=== PATIENT | female | born 1950 | race African-American/Black ===

== ENCOUNTER 2019-06-21 09:06 | Outpatient (CLI) | payer BC ==
--- NOTE | 2019-06-21 09:45 | MMO ---
Bilateral MAMMO Bilat Screen [facility]. CLINICAL HISTORY: Patient is 68 years old and is seen for screening. The patient has no family history of breast cancer. The patient has no personal history of cancer. VIEWS: The views performed were: bilateral craniocaudal with tomosynthesis and bilateral mediolateral oblique with tomosynthesis. FILMS COMPARED: The present examination has been compared to prior imaging studies performed at [facility] on 09/03/2014, 09/09/2015, 09/16/2016 and 09/20/2017. MAMMOGRAM FINDINGS: There are scattered fibroglandular densities. There are stable benign appearing calcifications seen in both breasts. Nodularity is stable. There are no suspicious masses, suspicious calcifications, or new areas of architectural distortion. IMPRESSION: THERE IS NO MAMMOGRAPHIC EVIDENCE OF MALIGNANCY. A ROUTINE FOLLOW-UP MAMMOGRAM IN 1 YEAR IS RECOMMENDED. THE RESULTS OF THIS EXAM WERE SENT TO THE PATIENT. ACR BI-RADS Category 2 - Benign finding MAMMOGRAPHY NOTE: 1. A negative mammogram report should not delay a biopsy if a dominant of clinically suspicious mass is present. 2. Approximately 10% to 15% of breast cancers are not detected by mammography. 3. Adenosis and dense breasts may obscure an underlying neoplasm. Reported by: ROSA MARIA HERNÁNDEZ MD Electonically Signed: [id number]
== END 2019-06-21 09:07 | disposition home or self-care (01) ==
LOC: BICMAMMO 09:06
PROVIDERS: ATTEND Family Medicine
DX: Z12.31 Encounter for screening mammogram for malignant neoplasm of breast (principal)
CPT/HCPCS: 77063; 77067

== ENCOUNTER 2020-11-25 11:33 | Outpatient (CLI) | payer MEDICARE ==
--- NOTE | 2020-11-25 12:53 | RAD ---
KUB AND UPRIGHT: HISTORY: Abdominal pain and constipation. FINDINGS: The bowel gas pattern is nonobstructed. No renal calculi. No free air. Arthritic changes of the sp ine and hips are present. IMPRESSION: No acute finding. POS: BALTAZAR
== END 2020-11-25 11:34 | disposition home or self-care (01) ==
LOC: BICRAD 11:33
PROVIDERS: ATTEND Physician Assistant Medical
DX: K59.00 Constipation, unspecified (principal); R14.0 Abdominal distension (gaseous); K52.9 Noninfective gastroenteritis and colitis, unspecified
CPT/HCPCS: 74019

== ENCOUNTER 2021-10-02 09:44 | Outpatient (CLI) | payer MEDICARE ==
[2021-10-02 11:26] LABS: #Eosinphils 0.2 10x3/uL (0.0-0.5); #Monocytes 0.3 10x3/uL (0.0-1.1); #Neutrophils 2.7 10x3/uL (1.5-8.4); %Basophils 0.8 % (0.0-2.0); %Eosinophils 2.9 % (0.0-6.0); %Lymphocytes 37.1 % (18.0-47.0); %Monocytes 6.4 % (0.0-10.0); %Neutrophils 52.6 % (40.0-75.0); Hemoglobin 11.9 g/dL (12.0-15.5); Mean Corpuscular HGB CONC 32.3 g/dL (32.0-36.0); Mean Corpuscular Hemoglobin 27.9 pg (27.0-33.0); Mean Corpuscular Volume 86.4 fl (81.6-98.3); Mean Platelet Volume 10.2 fl (7.4-10.4); Platelet Count 240 10x3/uL (150-450); RBC Distribution Width 16.2 % (11.5-14.5); Red Blood Cell (RBC) Count 4.26 10x6/uL (3.90-5.03); White Blood Cell (WBC) Count 5.2 10x3/uL (3.5-10.5)
[2021-10-02 11:44] LABS: INR-International Normal Ratio 0.9; Prothrombin Time 10.5 sec (9.5-12.1)
[2021-10-02 11:52] LABS: Anion Gap 11 mmol/L (10-20); BUN (Urea Nitrogen) 15 mg/dL (9.8-20.1); Calc. Creatinine Clearance 0 mL/min (70-130); Calcium 8.8 mg/dL (7.8-10.44); Carbon Dioxide 28 mmol/L (23-31); Chloride 107 mmol/L (98-107); Glucose 115 mg/dL (80-115); Potassium 3.8 mmol/L (3.5-5.1); Sodium 142 mmol/L (136-145)
[2021-10-02 22:08] LABS: SARS-CoV-2 PCR by NAA Not Detected (NotDetected)
== END 2021-10-02 09:45 | disposition home or self-care (01) ==
LOC: LABBT 09:44
PROVIDERS: ATTEND Orthopaedic Surgery
DX: Z01.818 Encounter for other preprocedural examination (principal); M17.11 Unilateral primary osteoarthritis, right knee; Z20.822 Contact with and (suspected) exposure to COVID-19
CPT/HCPCS: 80048; 85025; 85610; 87081; 93005; U0003; U0005; 93010

== ENCOUNTER 2021-10-06 05:34 | Observation (INO) | payer MEDICARE ==
[2021-10-06] MEDS ORDERED: Fentanyl 100 MCG/2 ML VIAL ONE ×2 (06:41→07:33)
[2021-10-06] MEDS ORDERED: Midazolam HCl 2 mg/2 ml Vial ONE (06:41)
[2021-10-06] MEDS ORDERED: Levofloxacin 500 mg/D5W 100 ml Premix Bag ONE (06:56)
[2021-10-06] MEDS ORDERED: Vancomycin 1 GM/200 ML BAG ONE (06:56)
[2021-10-06] MEDS ORDERED: Sodium Chloride 0.9% 100 ML ONE (06:56)
[2021-10-06] MEDS ORDERED: Tranexamic Acid 1,000 MG/10 ML VIAL ONE (06:56)
[2021-10-06] MEDS ORDERED: Ondansetron PF 4 MG/2 ML Vial IVP PRN ×2 (06:59→07:30)
[2021-10-06] MEDS ORDERED: HYDROcodone/Acetaminophen 10/325 mg Tablet PO PRN ×3 (06:59→07:30)
[2021-10-06] MEDS ORDERED: traMADol HCl 50 MG TAB PO PRN ×3 (06:59→07:30)
[2021-10-06] MEDS ORDERED: Acetaminophen 325 MG TAB PO PRN (06:59)
[2021-10-06] MEDS ORDERED: Promethazine HCl 25 MG/ML VIAL IM PRN ×3 (06:59→09:29)
[2021-10-06] MEDS ORDERED: Zolpidem Tartrate 5 MG TAB PO PRN ×2 (06:59→07:30)
[2021-10-06] MEDS ORDERED: diphenhydrAMINE 25 MG CAP PO PRN (06:59)
[2021-10-06] MEDS ORDERED: DOXYCYCLINE HYCLATE 100 MG PO PRN (07:01)
[2021-10-06] MEDS ORDERED: Ondansetron PF 4 MG/2 ML Vial ONE (07:25)
[2021-10-06] MEDS ORDERED: Dexamethasone 20 MG/5 ML VIAL ONE (07:25)
[2021-10-06] MEDS ORDERED: Labetalol HCl 100 MG/20 ML VIAL ONE (07:25)
[2021-10-06] MEDS ORDERED: PROPOFOL 200 MG/20 ML VIAL ONE (07:25)
[2021-10-06] MEDS ORDERED: Lidocaine 1% PF 5 ML VIAL ONE (07:25)
[2021-10-06] MEDS ORDERED: Bupivacaine HCl 0.5%/Epinephrine 1:200,000/PF 30 ml Vial ONE (07:25)
[2021-10-06] MEDS ORDERED: Fentanyl 100 MCG/2 ML VIAL SLOW IVP PRN (07:26)
[2021-10-06] MEDS ORDERED: Ropivacaine 0.2% 550 ML 550 ML NERVE BLCK SCH (07:30)
[2021-10-06] MEDS ORDERED: Doxycycline 100 MG CAP PO PRN (08:00)
[2021-10-06] MEDS ORDERED: Bupivacaine PF 0.5% 30 ML VIAL ONE (08:29)
[2021-10-06] MEDS ORDERED: Ferrous Gluconate 324 MG TAB PO SCH (09:00)
[2021-10-06] MEDS ORDERED: FOLIC ACID PO SCH (09:00)
[2021-10-06] MEDS ORDERED: PNV95 PO SCH (09:00)
[2021-10-06] MEDS ORDERED: IRON FUM PO SCH (09:00)
[2021-10-06] MEDS ORDERED: Senokot S 8.6-50 MG TAB PO SCH (09:00)
[2021-10-06] MEDS ORDERED: Aspirin 325 MG TAB PO SCH (09:00)
[2021-10-06] MEDS ORDERED: Ondansetron HCl/PF 4 MG/2 ML Vial IVP PRN (09:29)
[2021-10-06] MEDS ORDERED: Promethazine HCl 25 MG/ML VIAL IVPB PRN (09:29)
[2021-10-06 11:13] VITALS: BMI 28.8
[2021-10-06] MEDS: Sodium Chloride 0.9% 1,000 ML IV SCH ×2 (12:11→17:57)
[2021-10-06] MEDS: Folic Acid 1 MG TAB PO SCH (13:51)
[2021-10-06] MEDS: Ferrous Gluconate 324 MG TAB PO SCH ×2 (13:51→22:11)
[2021-10-06] MEDS: Aspirin 81 mg Enteric Coated Tablet PO SCH ×2 (13:51→22:11)
[2021-10-06] MEDS: Niacin 500 MG TAB PO SCH (13:52)
[2021-10-06] MEDS: Polyethylene Glycol 3350 17 GM Packet PO SCH (13:53)
[2021-10-06] MEDS: Prenatal Vitamin 1 TAB PO SCH (13:54)
[2021-10-06] MEDS: CEFAZOLIN 2 GM in Premix Bag 1 BAG IVPB SCH ×2 (14:25→17:21)
[2021-10-06] MEDS: ceFAZolin Sodium/D5W 2 GM in Premix Bag 1 BAG IVPB SCH ×2 (15:11→23:34)
[2021-10-06] MEDS ORDERED: Vancomycin 1.5 GRAM/300 ML BAG 1.5 GM in Premix Bag 1 BAG IVPB SCH (18:00)
[2021-10-06] MEDS ORDERED: Amlodipine 10 MG TAB PO SCH (21:00)
[2021-10-06] MEDS ORDERED: Mesalamine DR 400 mg Capsule PO SCH (21:00)
[2021-10-06] MEDS ORDERED: MESALAMINE 1.2 GM PO SCH (21:00)
[2021-10-06] MEDS ORDERED: Ferrous Sulfate 325 MG TAB PO SCH (21:00)
[2021-10-06] MEDS ORDERED: Non-Formulary Item 1 EACH (Iron [Iron] 18 MG Tablet) PO SCH (21:00)
[2021-10-06] MEDS ORDERED: Atorvastatin Calcium 10 MG TAB PO SCH (21:00)
[2021-10-07] MEDS: HYDROcodone/Acetaminophen 10/325 mg Tablet PO PRN ×3 (01:49→13:45)
[2021-10-07] MEDS: Sodium Chloride 0.9% 1,000 ML IV SCH (05:16)
[2021-10-07 05:54] LABS: Hemoglobin 11.3 g/dL (12.0-16.0); Mean Corpuscular HGB CONC 33.2 g/dL (32.0-36.0); Mean Corpuscular Hemoglobin 29.4 pg (27.0-31.0); Mean Corpuscular Volume 88.6 fL (78.0-98.0); Mean Platelet Volume 7.4 fL (7.4-10.4); Platelet Count 223 thou/uL (130-400); RBC Distribution Width 14.5 % (11.5-14.5); Red Blood Cell (RBC) Count 3.84 mill/uL (4.20-5.40)
[2021-10-07] MEDS: ceFAZolin Sodium/D5W 2 GM in Premix Bag 1 BAG IVPB SCH (06:30)
[2021-10-07] MEDS: Polyethylene Glycol 3350 17 GM Packet PO SCH (08:01)
[2021-10-07] MEDS: Ferrous Gluconate 324 MG TAB PO SCH (08:02)
[2021-10-07] MEDS: Folic Acid 1 MG TAB PO SCH (08:02)
[2021-10-07] MEDS: Niacin 500 MG TAB PO SCH (08:03)
[2021-10-07] MEDS: Aspirin 81 mg Enteric Coated Tablet PO SCH (08:03)
[2021-10-07] MEDS: Prenatal Vitamin 1 TAB PO SCH (08:03)
[2021-10-07] MEDS ORDERED: Multivitamin W/ Minerals 1 TAB PO SCH (09:00)
[2021-10-07] MEDS ORDERED: Senokot S 8.6-50 MG TAB PO SCH (09:00)
[2021-10-07 16:12] VITALS: BP 174/87; TEMP 98.6
== END 2021-10-07 17:49 | disposition home health service (06) ==
LOC: SDC 05:34 → INTOOBSV 10:49 → SJJU 10:49
PROVIDERS: ADMIT Orthopaedic Surgery; ATTEND Orthopaedic Surgery
PROC: 0SRC0J9 Replacement of Right Knee Joint with Synthetic Substitute, Cemented, Open Approach (ICD-10-PCS; principal; 2021-10-06)
PROC: 8E0YXBZ Computer Assisted Procedure of Lower Extremity (ICD-10-PCS; 2021-10-06)
PROC: 3E0T3BZ Introduction of Anesthetic Agent into Peripheral Nerves and Plexi, Percutaneous Approach (ICD-10-PCS; 2021-10-06)
DX: M17.11 Unilateral primary osteoarthritis, right knee (principal); I10 Essential (primary) hypertension; E11.9 Type 2 diabetes mellitus without complications; E78.5 Hyperlipidemia, unspecified; Q60.2 Renal agenesis, unspecified; Z79.82 Long term (current) use of aspirin; Z79.899 Other long term (current) drug therapy; Z88.0 Allergy status to penicillin; Z88.2 Allergy status to sulfonamides; Z88.5 Allergy status to narcotic agent; Z96.652 Presence of left artificial knee joint
CPT/HCPCS: 20985; 27447; 64448; 73560; 85027; 96365; 96375; 96376 ×2; 97110; 97116; 97139 ×2; 97530 ×2; A4306; C1713; C1776; G0378 ×2; 36415; J1100; J1956; J2250; J2405; J2704; J2795; J3010; J3370; J3490; J7050; S0020

== ENCOUNTER 2021-12-21 12:57 | Emergency (ER) | payer MEDICARE | END 2021-12-21 15:30 | disposition home or self-care (01) | LOC: ERS 12:57 | DX: S63.634A Sprain of interphalangeal joint of right ring finger, initial encounter (principal); E11.9 Type 2 diabetes mellitus without complications; I10 Essential (primary) hypertension; X50.9XXA Other and unspecified overexertion or strenuous movements or postures, initial encounter ==

== ENCOUNTER 2022-10-13 15:14 | Emergency (ER) | payer MEDICARE, OTHER ==
[2022-10-13 15:41] LABS: #Eosinphils 0.1 thou/uL (0.0-0.7); #Lymphocytes 1.7 thou/uL (1.20-3.40); #Monocytes 0.6 thou/uL (0.11-0.59); #Neutrophils 4.4 thou/uL (1.40-6.50); %Basophils 0.6 % (0.0-1.0); %Eosinophils 1.1 % (0.0-10.0); %Lymphocytes 24.8 % (21.0-51.0); %Monocytes 9.1 % (0.0-10.0); %Neutrophils 64.5 % (42.0-75.0); Hemoglobin 11.3 g/dL (12.0-16.0); Mean Corpuscular HGB CONC 32.7 g/dL (32.0-36.0); Mean Corpuscular Hemoglobin 29.2 pg (27.0-31.0); Mean Corpuscular Volume 89.3 fl (78.0-98.0); Mean Platelet Volume 7.8 fL (7.4-10.4); Platelet Count 212 10x3/uL (130-400); RBC Distribution Width 14.8 % (11.5-14.5); Red Blood Cell (RBC) Count 3.87 mill/uL (4.20-5.40); White Blood Cell (WBC) Count 6.8 10x3/uL (4.8-10.8)
[2022-10-13 16:00] LABS: ALT (SGPT) 20 U/L (8-55); AST (SGOT) 16 U/L (5-34); Albumin 3.9 g/dL (3.4-4.8); Alkaline Phosphatase 82 U/L (40-110); Anion Gap 13 mmol/L (10-20); BUN (Urea Nitrogen) 21 mg/dL (9.8-20.1); Bilirubin, Total 0.3 mg/dL (0.2-1.2); Calc. Creatinine Clearance 0 mL/min (70-130); Calcium 9.4 mg/dL (7.8-10.44); Carbon Dioxide 25 mmol/L (23-31); Chloride 108 mmol/L (98-107); Estimated GFR 61; Globulin 3.3 g/dL (2.4-3.5); Glucose 106 mg/dL (80-115); Protein, Total 7.2 g/dL (5.8-8.1); Sodium 142 mmol/L (136-145)
[2022-10-13] MEDS ORDERED: Dexameth. Sod Phosp. 10 MG/ML (CHEMO USE ONLY) ONE (18:17)
[2022-10-13] MEDS ORDERED: Ketorolac Tromethamine 30 MG/ML VIAL ONE (18:17)
== END 2022-10-13 18:52 | disposition home or self-care (01) ==
LOC: ERS 15:14
DX: M54.42 Lumbago with sciatica, left side (principal); M79.605 Pain in left leg
CPT/HCPCS: 36415; 80053; 85025; 96372; J1100; J1885

== ENCOUNTER 2023-04-28 08:39 | Outpatient (CLI) | payer OTHER | END 2023-04-28 08:40 | disposition home or self-care (01) | LOC: BICMRI 08:39 | PROVIDERS: ATTEND Family Medicine | DX: M47.26 Other spondylosis with radiculopathy, lumbar region (principal); M47.817 Spondylosis without myelopathy or radiculopathy, lumbosacral region; M47.815 Spondylosis without myelopathy or radiculopathy, thoracolumbar region; K80.20 Calculus of gallbladder without cholecystitis without obstruction | CPT/HCPCS: 72148 ==

== ENCOUNTER 2023-07-14 08:35 | Outpatient (CLI) | payer OTHER ==
[2023-07-14] MEDS ORDERED: Iopamidol-370 76% 500 ML MDV (1 ML CHARGE) ONE (09:13)
== END 2023-07-14 08:36 | disposition home or self-care (01) ==
LOC: BICCT 08:35
PROVIDERS: ATTEND Physician Assistant Medical
DX: R10.30 Lower abdominal pain, unspecified (principal); N28.89 Other specified disorders of kidney and ureter
CPT/HCPCS: 74177

== ENCOUNTER 2023-07-28 07:59 | Outpatient (CLI) | payer OTHER ==
[2023-07-28] MEDS ORDERED: Iopamidol 370 76% 100 ML VIAL ONE (15:50)
== END 2023-07-28 08:00 | disposition home or self-care (01) ==
LOC: BICCT 07:59
PROVIDERS: ATTEND Physician Assistant Medical
DX: R93.421 Abnormal radiologic findings on diagnostic imaging of right kidney (principal)
CPT/HCPCS: 74178; Q9967

== ENCOUNTER 2023-08-17 08:39 | Outpatient (CLI) | payer OTHER | END 2023-08-17 08:40 | disposition home or self-care (01) | LOC: BICCT 08:39 | PROVIDERS: ATTEND Urology | DX: N28.1 Cyst of kidney, acquired (principal); N28.89 Other specified disorders of kidney and ureter; I70.0 Atherosclerosis of aorta | CPT/HCPCS: 74174; 82565 ==

== ENCOUNTER 2023-08-25 13:02 | Outpatient (CLI) | payer OTHER | END 2023-08-25 13:03 | disposition home or self-care (01) | LOC: NM 13:02 | PROVIDERS: ATTEND Urology | DX: N28.1 Cyst of kidney, acquired (principal) | CPT/HCPCS: 78707; A9562 ==

== ENCOUNTER 2023-11-18 09:27 | Outpatient (CLI) | payer OTHER ==
[2023-11-18 11:09] LABS: Bilirubin Neg (Negative); Blood, Urine 250 (Negative); Clarity Clear (Clear); Glucose, Urine (Dipstick) Normal (Negative); Ketone, Urine Negative (Negative); Leukocyte Negative (Negative); Nitrite Negative (Negative); Protein, Urine (Dipstick) 100 mg/dl (Neg-Trace); Urobilinogen Normal mg/dL (Less than 2)
[2023-11-18 11:10] LABS: Hematocrit 34.2 % (34.9-44.5); Hemoglobin 10.9 g/dL (12.0-15.5); Mean Corpuscular HGB CONC 31.9 g/dL (32.0-36.0); Mean Corpuscular Hemoglobin 27.2 pg (27.0-33.0); Mean Corpuscular Volume 85.3 fl (81.6-98.3); Mean Platelet Volume 10.2 fl (7.4-10.4); Platelet Count 266 10x3/uL (150-450); Red Blood Cell (RBC) Count 4.01 10x6/uL (3.90-5.03); White Blood Cell (WBC) Count 4.8 10x3/uL (3.5-10.5)
[2023-11-18 11:16] LABS: Bacteria/HPF None Seen HPF (None Seen); Squamous Epithelial 0-3 HPF (0-3); WBC/HPF None Seen HPF (0-3)
[2023-11-18 11:34] LABS: INR-International Normal Ratio 0.9; Prothrombin Time 10.1 sec (9.5-12.1)
[2023-11-18 12:09] LABS: Anion Gap 17 mmol/L (10-20); BUN (Urea Nitrogen) 21 mg/dL (9.8-20.1); Calc. Creatinine Clearance 0 mL/min (70-130); Calcium 8.9 mg/dL (7.8-10.44); Carbon Dioxide 23 mmol/L (23-31); Chloride 106 mmol/L (98-107); Estimated GFR 44; Glucose 102 mg/dL (83-110); Potassium 4.1 mmol/L (3.5-5.1); Sodium 142 mmol/L (136-145)
== END 2023-11-18 09:28 | disposition home or self-care (01) ==
LOC: LABBT 09:27
PROVIDERS: ATTEND Urology
DX: Z01.818 Encounter for other preprocedural examination (principal); N28.1 Cyst of kidney, acquired; E11.9 Type 2 diabetes mellitus without complications; I10 Essential (primary) hypertension
CPT/HCPCS: 71046; 80048; 81001; 85027; 85610; 85730; 87086; 93005; 93010

== ENCOUNTER 2023-11-18 10:00 | Inpatient (IN) | payer OTHER ==
[2023-11-26] MEDS ORDERED: PROPOFOL 20 ML ONE (06:49)
[2023-11-26] MEDS ORDERED: fentaNYL PF 100 MCG/2 ML SYRINGE ONE ×2 (06:49→07:49)
[2023-11-26] MEDS ORDERED: Lidocaine 1% PF 5 ML VIAL ONE (06:50)
[2023-11-26] MEDS ORDERED: Rocuronium Bromide 10 MG/ML (10ML VIAL) ONE (06:50)
[2023-11-26] MEDS ORDERED: Sodium Chloride 0.9% 100 ML ONE (07:00)
[2023-11-26] MEDS ORDERED: CEFAZOLIN 2 GM VIAL ONE (07:00)
[2023-11-26] MEDS ORDERED: Vasopressin 20 UNITS/ML VIAL ONE (07:33)
[2023-11-26] MEDS ORDERED: Bupivacaine 0.25% HCL 30 ML VIAL ONE (07:34)
[2023-11-26] MEDS ORDERED: Phenylephrine 40 MG/NS 250 ML 250 ML ONE (07:34)
[2023-11-26] MEDS ORDERED: Ropivacaine 0.2% HCl/PF 20 ML ONE (07:56)
[2023-11-26] MEDS ORDERED: HYDROcodone/Acetaminophen 5/325 mg Tablet PO PRN ×2 (08:00)
[2023-11-26] MEDS ORDERED: Moisturizing Cream (Eucerin) 113 GM JAR TOP PRN (08:00)
[2023-11-26] MEDS ORDERED: diphenhydrAMINE 50 MG/ML VIAL IM PRN (08:00)
[2023-11-26] MEDS ORDERED: Promethazine HCl 25 MG/ML VIAL IM PRN ×2 (08:00→10:34)
[2023-11-26] MEDS ORDERED: diphenhydrAMINE 25 MG CAP PO PRN (08:00)
[2023-11-26] MEDS ORDERED: Zolpidem Tartrate 5 MG TAB PO PRN (08:00)
[2023-11-26] MEDS ORDERED: Promethazine HCl 25 MG SUPP PR PRN (08:00)
[2023-11-26] MEDS ORDERED: traMADol HCl 50 MG TAB PO PRN ×2 (08:00)
[2023-11-26] MEDS ORDERED: Naloxone HCl 0.4 mg/ml Vial IVP PRN (08:00)
[2023-11-26] MEDS ORDERED: Naloxone HCl 0.4 mg/ml Vial IV PRN (08:00)
[2023-11-26] MEDS ORDERED: ePHEDrine Sulfate 50 MG/10 ML VIAL ONE (08:09)
[2023-11-26] MEDS ORDERED: Albumin 5% 500 ML ONE (09:41)
[2023-11-26] MEDS ORDERED: Dexamethasone 20 MG/5 ML VIAL ONE (10:26)
[2023-11-26] MEDS ORDERED: Ondansetron PF 4 MG/2 ML Vial ONE (10:26)
[2023-11-26] MEDS ORDERED: Lidocaine 1.5% w/Epi 1:200K 30 ML VIAL (Epid Use) ONE (10:26)
[2023-11-26] MEDS ORDERED: HYDROmorphone 2 MG/ML VIAL SLOW IVP PRN (10:34)
[2023-11-26] MEDS ORDERED: Ondansetron HCl/PF 4 MG/2 ML Vial IVP PRN (10:34)
[2023-11-26] MEDS ORDERED: Glycopyrrolate 0.2 MG/ML 5 ML SYRINGE ONE (10:44)
[2023-11-26] MEDS ORDERED: NEOSTIGMINE 3 MG/3 ML SYR 3 MG/3 ML SYRINGE ONE (10:44)
[2023-11-26] MEDS ORDERED: Dextrose 5% in Water 1,000 ML IV PRN (11:19)
[2023-11-26] MEDS ORDERED: Mag-Al 1200 mg/1200 mg/30 ML UDCUP PO PRN (11:19)
[2023-11-26] MEDS ORDERED: Glucagon 1 MG/ML KIT IM PRN (11:19)
[2023-11-26] MEDS ORDERED: Bisacodyl 10 MG SUPP PR PRN (11:19)
[2023-11-26] MEDS ORDERED: Dextrose 50% Abboject 50 ML SYRINGE SLOW IVP PRN (11:19)
[2023-11-26] MEDS ORDERED: Insulin Regular 300 UNITS/3 ML VIAL SC PRN (11:19)
[2023-11-26] MEDS: Sodium Chloride 0.9% 1,000 ML IV SCH (11:30)
[2023-11-26 11:46] LABS: Hematocrit 29.1 % (36.0-47.0); Hemoglobin 9.3 g/dL (12.0-16.0); Mean Corpuscular Hemoglobin 27.4 pg (27.0-31.0); Mean Corpuscular Volume 85.8 fl (78.0-98.0); Mean Platelet Volume 10.2 fL (7.4-10.4); Platelet Count 243 10x3/uL (130-400); RBC Distribution Width 16.4 % (11.5-14.5); Red Blood Cell (RBC) Count 3.39 mill/uL (4.20-5.40); White Blood Cell (WBC) Count 14.8 10x3/uL (4.8-10.8)
[2023-11-26 12:11] LABS: Anion Gap 13 mmol/L (10-20); BUN (Urea Nitrogen) 23 mg/dL (9.8-20.1); Calc. Creatinine Clearance 55 mL/min (70-130); Calcium 8.3 mg/dL (7.8-10.44); Carbon Dioxide 20 mmol/L (23-31); Chloride 112 mmol/L (98-107); Estimated GFR 56; Glucose 130 mg/dL (83-110); Potassium 3.6 mmol/L (3.5-5.1); Sodium 141 mmol/L (136-145)
[2023-11-26] MEDS ORDERED: fentaNYL 50 mcg/mL 1 mL Vial ONE ×2 (12:31→12:37)
[2023-11-26 13:56] VITALS: BMI 29.2
[2023-11-26] MEDS ORDERED: Bupivacaine 0.25% 10 ML VIAL EPIDURAL PRN (14:00)
[2023-11-26] MEDS ORDERED: CEFAZOLIN 1 GM in Sodium Chloride 0.9% 100 ML IVPB SCH (14:00)
[2023-11-26] MEDS: CEFAZOLIN 1 GM in Sodium Chloride 0.9% 100 ML IVPB SCH (16:02)
[2023-11-26] MEDS: Labetalol HCl 100 MG/20 ML VIAL SLOW IVP PRN (17:54)
[2023-11-26] MEDS: Amlodipine 10 MG TAB PO SCH (19:37)
[2023-11-26] MEDS: Atorvastatin Calcium 20 MG TAB PO SCH (19:37)
[2023-11-26] MEDS: Ferrous Sulfate 325 MG TAB PO SCH (19:37)
[2023-11-26] MEDS: Mesalamine DR 400 mg Capsule PO SCH (19:38)
[2023-11-26] MEDS: Senokot S 8.6-50 MG TAB PO SCH (19:38)
[2023-11-26] MEDS: Ramipril 5 MG CAP PO SCH (19:38)
[2023-11-26] MEDS ORDERED: MESALAMINE 1.2 GM PO SCH (21:00)
[2023-11-26] MEDS ORDERED: Non-Formulary Item 1 EACH (Ferrous Sulfate [Ferosul] 325 MG Tablet) PO SCH (21:00)
[2023-11-26] MEDS ORDERED: Non-Formulary Item 1 EACH (Ferrous Gluconate [Ferrous Gluconate] 324 MG Tablet) PO SCH (21:00)
[2023-11-26] MEDS ORDERED: Non-Formulary Item 1 EACH (Ramipril [Ramipril] 10 MG Capsule) PO SCH (21:00)
[2023-11-26] MEDS ORDERED: PITAVASTATIN CALCIUM 4 MG PO SCH (21:00)
[2023-11-26] MEDS ORDERED: Ferrous Gluconate 324 MG TAB PO SCH (21:00)
[2023-11-26] MEDS: Ondansetron PF 4 MG/2 ML Vial IVP PRN (23:25)
[2023-11-27] MEDS: FENTANYL 500 MCG/10 ML VIAL 500 MCG, Bupivacaine 0.75% 10 ML in Sodium Chloride 0.9% 80 ML EPIDURAL SCH (03:31)
[2023-11-27 04:01] LABS: #Monocytes 0.9 thou/uL (0.11-0.59); %Basophils 0.2 % (0.0-1.0); %Lymphocytes 8.4 % (21.0-51.0); %Monocytes 7.1 % (0.0-10.0); Hematocrit 29.5 % (36.0-47.0); Hemoglobin 9.6 g/dL (12.0-16.0); Mean Corpuscular HGB CONC 32.5 g/dL (32.0-36.0); Mean Corpuscular Hemoglobin 27.1 pg (27.0-31.0); Mean Corpuscular Volume 83.3 fl (78.0-98.0); Mean Platelet Volume 10.4 fL (7.4-10.4); Platelet Count 236 10x3/uL (130-400); RBC Distribution Width 16.2 % (11.5-14.5); Red Blood Cell (RBC) Count 3.54 mill/uL (4.20-5.40); White Blood Cell (WBC) Count 13.1 10x3/uL (4.8-10.8)
[2023-11-27 04:26] LABS: Anion Gap 12 mmol/L (10-20); BUN (Urea Nitrogen) 23 mg/dL (9.8-20.1); Calc. Creatinine Clearance 42 mL/min (70-130); Calcium 8.4 mg/dL (7.8-10.44); Carbon Dioxide 21 mmol/L (23-31); Chloride 109 mmol/L (98-107); Estimated GFR 39; Glucose 127 mg/dL (83-110); Potassium 4.2 mmol/L (3.5-5.1); Sodium 138 mmol/L (136-145)
[2023-11-27] MEDS: FLU VACC QS2023(65UP)/MF59C/PF 60 MCG/0.5 ML SYRINGE IM ONE (07:09)
[2023-11-27] MEDS: Lactated Ringer's 1,000 ML IV SCH (10:06)
[2023-11-27] MEDS: Enoxaparin 40 MG (0.4 mL) SYRINGE SC SCH (20:03)
[2023-11-27] MEDS: Promethazine HCl 12.5 MG in Sodium Chloride 0.9% 50 ML IVPB SCH (21:17)
[2023-11-28 03:32] LABS: #Basophils 0.1 thou/uL (0.0-0.2); #Eosinphils 0.1 thou/uL (0.0-0.7); #Monocytes 0.9 thou/uL (0.11-0.59); #Neutrophils 7.2 thou/uL (1.40-6.50); %Basophils 0.7 % (0.0-1.0); %Eosinophils 0.5 % (0.0-10.0); %Lymphocytes 17.6 % (21.0-51.0); Hemoglobin 9.1 g/dL (12.0-16.0); Mean Corpuscular HGB CONC 32.5 g/dL (32.0-36.0); Mean Corpuscular Hemoglobin 27.4 pg (27.0-31.0); Mean Corpuscular Volume 84.3 fl (78.0-98.0); Mean Platelet Volume 10.7 fL (7.4-10.4); Platelet Count 213 10x3/uL (130-400); RBC Distribution Width 17.1 % (11.5-14.5); Red Blood Cell (RBC) Count 3.32 mill/uL (4.20-5.40)
[2023-11-28 03:52] LABS: Anion Gap 13 mmol/L (10-20); BUN (Urea Nitrogen) 25 mg/dL (9.8-20.1); Calc. Creatinine Clearance 38 mL/min (70-130); Calcium 8.8 mg/dL (7.8-10.44); Carbon Dioxide 20 mmol/L (23-31); Chloride 110 mmol/L (98-107); Estimated GFR 34; Glucose 85 mg/dL (83-110); Potassium 4.1 mmol/L (3.5-5.1); Sodium 139 mmol/L (136-145)
[2023-11-28] MEDS: Heparin 5,000 UNITS/ML VIAL SC SCH (08:58)
[2023-11-28] MEDS: Polyethylene Glycol 3350 17 GM Packet PO SCH (14:33)
[2023-11-28] MEDS: diphenhydrAMINE 50 MG/ML VIAL IVP PRN (19:21)
[2023-11-28] MEDS: hydrALAZINE 20 MG/ML VIAL SLOW IVP PRN (19:22)
[2023-11-29 04:32] LABS: #Eosinphils 0.2 thou/uL (0.0-0.7); #Monocytes 0.7 thou/uL (0.11-0.59); %Basophils 0.6 % (0.0-1.0); %Monocytes 10.1 % (0.0-10.0); %Neutrophils 58.9 % (42.0-75.0); Hematocrit 28.9 % (36.0-47.0); Hemoglobin 9.2 g/dL (12.0-16.0); Mean Corpuscular HGB CONC 31.8 g/dL (32.0-36.0); Mean Corpuscular Hemoglobin 27.5 pg (27.0-31.0); Mean Corpuscular Volume 86.3 fl (78.0-98.0); Mean Platelet Volume 10.6 fL (7.4-10.4); Platelet Count 220 10x3/uL (130-400); RBC Distribution Width 16.6 % (11.5-14.5); Red Blood Cell (RBC) Count 3.35 mill/uL (4.20-5.40); White Blood Cell (WBC) Count 6.7 10x3/uL (4.8-10.8)
[2023-11-29 04:53] LABS: Anion Gap 13 mmol/L (10-20); BUN (Urea Nitrogen) 27 mg/dL (9.8-20.1); Calc. Creatinine Clearance 39 mL/min (70-130); Carbon Dioxide 21 mmol/L (23-31); Chloride 107 mmol/L (98-107); Estimated GFR 35; Glucose 86 mg/dL (83-110); Potassium 4.1 mmol/L (3.5-5.1); Sodium 137 mmol/L (136-145)
[2023-11-29] MEDS: Polyethylene Glycol 3350 17 GM Packet PO SCH (08:17)
[2023-11-29] MEDS: Enoxaparin 30 MG (0.3 mL) SYRINGE SC SCH (19:34)
[2023-11-30 05:10] LABS: #Basophils 0.1 thou/uL (0.0-0.2); #Eosinphils 0.2 thou/uL (0.0-0.7); #Monocytes 0.6 thou/uL (0.11-0.59); #Neutrophils 3.8 thou/uL (1.40-6.50); %Basophils 0.9 % (0.0-1.0); %Eosinophils 3.1 % (0.0-10.0); %Lymphocytes 29.7 % (21.0-51.0); %Monocytes 9.2 % (0.0-10.0); %Neutrophils 56.7 % (42.0-75.0); Hematocrit 26.9 % (36.0-47.0); Hemoglobin 8.8 g/dL (12.0-16.0); Mean Corpuscular HGB CONC 32.7 g/dL (32.0-36.0); Mean Corpuscular Hemoglobin 27.7 pg (27.0-31.0); Mean Corpuscular Volume 84.6 fl (78.0-98.0); Mean Platelet Volume 10.1 fL (7.4-10.4); Platelet Count 213 10x3/uL (130-400); Red Blood Cell (RBC) Count 3.18 mill/uL (4.20-5.40); White Blood Cell (WBC) Count 6.7 10x3/uL (4.8-10.8)
[2023-11-30 05:40] LABS: Anion Gap 11 mmol/L (10-20); BUN (Urea Nitrogen) 29 mg/dL (9.8-20.1); Calc. Creatinine Clearance 35 mL/min (70-130); Carbon Dioxide 22 mmol/L (23-31); Chloride 108 mmol/L (98-107); Estimated GFR 31; Glucose 97 mg/dL (83-110); Potassium 4.3 mmol/L (3.5-5.1); Sodium 137 mmol/L (136-145)
[2023-11-30 23:54] VITALS: BP 201/95
[2023-12-01 05:21] LABS: #Monocytes 0.3 thou/uL (0.11-0.59); #Neutrophils 5.5 thou/uL (1.40-6.50); %Basophils 0.4 % (0.0-1.0); %Eosinophils 0.3 % (0.0-10.0); %Lymphocytes 15.9 % (21.0-51.0); %Monocytes 4.7 % (0.0-10.0); %Neutrophils 78.1 % (42.0-75.0); Hematocrit 28.8 % (36.0-47.0); Hemoglobin 9.6 g/dL (12.0-16.0); Mean Corpuscular HGB CONC 33.3 g/dL (32.0-36.0); Mean Corpuscular Hemoglobin 27.8 pg (27.0-31.0); Mean Corpuscular Volume 83.5 fl (78.0-98.0); Mean Platelet Volume 10.2 fL (7.4-10.4); Platelet Count 249 10x3/uL (130-400); RBC Distribution Width 15.8 % (11.5-14.5); Red Blood Cell (RBC) Count 3.45 mill/uL (4.20-5.40); White Blood Cell (WBC) Count 7.1 10x3/uL (4.8-10.8)
[2023-12-01 05:51] LABS: Anion Gap 12 mmol/L (10-20); BUN (Urea Nitrogen) 29 mg/dL (9.8-20.1); Calc. Creatinine Clearance 39 mL/min (70-130); Carbon Dioxide 24 mmol/L (23-31); Chloride 106 mmol/L (98-107); Potassium 4.3 mmol/L (3.5-5.1); Sodium 138 mmol/L (136-145)
[2023-12-01 05:52] LABS: Calcium 9.5 mg/dL (7.8-10.44); Estimated GFR 35; Glucose 102 mg/dL (83-110)
[2023-12-01 08:18] VITALS: TEMP 98.3
[2023-12-01] MEDS ORDERED: Enoxaparin 40 MG (0.4 mL) SYRINGE SC SCH (21:00)
== END 2023-12-01 10:25 | disposition home or self-care (01) | DRG 660 ==
LOC: SURG A 11-26 06:00 → CCU 11-26 13:23
PROVIDERS: ADMIT Urology; ATTEND Urology
PROC: 0TT00ZZ Resection of Right Kidney, Open Approach (ICD-10-PCS; principal; 2023-11-26)
PROC: 30233J1 Transfusion of Nonautologous Serum Albumin into Peripheral Vein, Percutaneous Approach (ICD-10-PCS; 2023-11-26)
DX: N28.1 Cyst of kidney, acquired (principal); K50.90 Crohn's disease, unspecified, without complications; N17.9 Acute kidney failure, unspecified; I10 Essential (primary) hypertension; E11.9 Type 2 diabetes mellitus without complications; K66.0 Peritoneal adhesions (postprocedural) (postinfection); Z88.5 Allergy status to narcotic agent; Z88.2 Allergy status to sulfonamides; R33.9 Retention of urine, unspecified
CPT/HCPCS: 36415; 36416; 74018; 80048; 85025; 85027; 86850; 86900; 86901; 88307; A4314; A4649; C1713; C1776; C1889; J0360; J0665; J0690; J1100; J1200; J1644; J1650; J2001; J2405; J2550; J2704; J2795; J3010; J3490; J7050; J7120; P9045

== ENCOUNTER 2023-12-12 20:40 | Emergency (ER) | payer OTHER ==
[2023-12-13 00:09] LABS: #Basophils 0.1 thou/uL (0.0-0.2); #Eosinphils 0.3 thou/uL (0.0-0.7); #Monocytes 0.6 thou/uL (0.11-0.59); #Neutrophils 3.8 thou/uL (1.40-6.50); %Basophils 0.7 % (0.0-1.0); %Eosinophils 4.7 % (0.0-10.0); %Monocytes 8.3 % (0.0-10.0); %Neutrophils 54.9 % (42.0-75.0); Hemoglobin 9.4 g/dL (12.0-16.0); Mean Corpuscular HGB CONC 32.4 g/dL (32.0-36.0); Mean Corpuscular Hemoglobin 27.4 pg (27.0-31.0); Mean Corpuscular Volume 84.5 fl (78.0-98.0); Mean Platelet Volume 10.6 fL (7.4-10.4); Platelet Count 258 10x3/uL (130-400); Red Blood Cell (RBC) Count 3.43 mill/uL (4.20-5.40)
[2023-12-13 00:36] LABS: ALT (SGPT) 11 U/L (8-55); AST (SGOT) 12 U/L (5-34); Albumin 3.7 g/dL (3.4-4.8); Alkaline Phosphatase 83 U/L (40-110); Anion Gap 14 mmol/L (10-20); BUN (Urea Nitrogen) 45 mg/dL (9.8-20.1); Bilirubin, Total 0.2 mg/dL (0.2-1.2); Calc. Creatinine Clearance 0 mL/min (70-130); Calcium 9.5 mg/dL (7.8-10.44); Carbon Dioxide 22 mmol/L (23-31); Chloride 109 mmol/L (98-107); Estimated GFR 27; Globulin 3.8 g/dL (2.4-3.5); Glucose 103 mg/dL (83-110); Potassium 4.4 mmol/L (3.5-5.1); Protein, Total 7.5 g/dL (5.8-8.1); Sodium 141 mmol/L (136-145)
[2023-12-13] MEDS ORDERED: Clindamycin 150 MG CAP ONE (01:26)
== END 2023-12-13 01:29 | disposition home or self-care (01) ==
LOC: ERS 20:40
DX: N99.521 Infection of incontinent external stoma of urinary tract (principal); I10 Essential (primary) hypertension; E11.9 Type 2 diabetes mellitus without complications
CPT/HCPCS: 36415; 80053; 83605; 85025; 99283

== ENCOUNTER 2025-10-15 16:19 | Emergency (ER) | payer OTHER | END 2025-10-15 20:35 | disposition home or self-care (01) | LOC: ERS 16:19 | DX: M25.511 Pain in right shoulder (principal); E11.9 Type 2 diabetes mellitus without complications; I10 Essential (primary) hypertension; X50.9XXA Other and unspecified overexertion or strenuous movements or postures, initial encounter | CPT/HCPCS: 36415; 71045; 84484; 93005 ==